=== PATIENT | male | born 1950 | race Two or more races ===

== ENCOUNTER 2021-01-08 18:33 | Inpatient (IN) | payer MEDICAID, OTHER ==
[~2021-01-08] VITALS: Ht 188 cm; Wt 92.5 kg
[2021-01-08 19:31] LABS: Basophils # (auto) 0 10 ^3/uL (0-0.2); Basophils % (auto) 0.1 % (0.0-2.0); Eosinophils # (auto) 0 10 ^3/uL (0-0.8); Hemoglobin 17.4 g/dL (13.5-17.5); Lymphocytes # (auto) 1.1 10 ^3/uL (0.4-5.4); Lymphocytes % (auto) 5.6 % (10.0-50.0); Mean Corpuscular Hemoglobin 28.7 pg (28.0-32.0); Mean Corpuscular Hgb Conc. 29.9 g/dL (32.0-36.0); Mean Corpuscular Volume 96.1 fL (80.0-100.0); Monocytes # (auto) 1.1 10 ^3/uL (0-1.3); Monocytes % (auto) 5.6 % (0.0-12.0); Neutrophils # (auto) 18.1 10 ^3/uL (1.6-8.6); Neutrophils % (auto) 88.7 % (37.0-80.0); Platelet Count (auto) 329 10^3/uL (140-450); Red Blood Cells 6.07 10^6/uL (4.5-5.90); Red Cell Distribution Width 16.5 % (11.8-14.3); White Blood Cell 20.4 10^3/uL (4.4-10.8)
[2021-01-08 19:33] LABS: Hematocrit 58.3 % (41.0-53.0)
[2021-01-08 19:47] LABS: Albumin 3.9 g/dL (3.4-5.0); Anion Gap 25 (5-15); Blood Alcohol < 3.0 mg/dL (0-5); Blood Urea Nitrogen 49 mg/dL (7-18); Calcium 9.7 mg/dL (8.5-10.1); Carbon Dioxide 14 mmol/L (21-32); Chloride 97 mmol/L (98-107); Potassium 4.5 mmol/L (3.5-5.1); Sodium 136 mmol/L (136-145)
[2021-01-08 19:50] LABS: Lactic Acid w/Reflex 7.9 mmol/L (0.4-2.0)
[2021-01-08 19:51] LABS: Alanine Aminotransferase 29 U/L (16-61); Alkaline Phosphatase 153 U/L (45-117); Aspartate Aminotransferase 17 U/L (15-37); BUN/Creatinine Ratio 14.3; Bilirubin, Total 0.5 mg/dL (0.2-1.0); GFR African American 23 mL/min; GFR Non-African American 19 mL/min; Total Protein 8.6 g/dL (6.4-8.2)
[2021-01-08 20:12] LABS: Glucose 1589 mg/dL (74-106)
[2021-01-08] MEDS: SODIUM CHLORIDE 0.9% 1,000 ML IV SCH ×2 (20:30→22:30)
[2021-01-08] MEDS ORDERED: InsuLIN R (HUMAN) 100 UNITS in SODIUM CHL 0.9% 99 ML IV SCH (20:30)
[2021-01-08] MEDS ORDERED: cefTRIAXone 1GM/50ML D5W 50 ML IV ONE (20:30)
[2021-01-08] MEDS ORDERED: DEXTROSE (50%) 50ML SYRG IV PRN (20:30)
[2021-01-08 20:42] LABS: Amphetamine Screen, Urine NEGATIVE (NEGATIVE); Barbiturate Scree,Urine NEGATIVE (NEGATIVE); Benzodiazephine Screen, Urine NEGATIVE (NEGATIVE); Cannabinoid Screen, Urine NEGATIVE (NEGATIVE); Cocaine Screen, Urine NEGATIVE (NEGATIVE); Opiate Scree,Urine NEGATIVE (NEGATIVE); Phencyclidine Screen, Urine NEGATIVE (NEGATIVE)
[2021-01-08 20:56] LABS: Urine Bacteria NONE SEEN /hpf (None Seen); Urine Blood 1+ /uL (Negative); Urine Specific Gravity 1.027 (1.001-1.035); Urine WBC 2 /hpf (0 - 3)
[2021-01-08] MEDS ORDERED: SOD CHL 0.9%/ KCL 20MEQ 1,000 ML IV ONE (21:00)
[2021-01-08] MEDS: ACCU-CHEK COMFORT CURVE STRIP VI SCH ×2 (21:15→22:30)
[2021-01-08 21:55] LABS: Lactic Acid w/Reflex 5.1 mmol/L (0.4-2.0)
[2021-01-08] MEDS ORDERED: SODIUM BICARBONATE 8.4 % INJ 50ML VIAL IV ONE (22:45)
[2021-01-09] MEDS: ACCU-CHEK COMFORT CURVE STRIP VI SCH ×12 (00:34→20:17)
[2021-01-09] MEDS ORDERED: InsuLIN R (HUMAN) 100 UNITS in SODIUM CHL 0.9% 99 ML IV SCH (01:00)
[2021-01-09] MEDS ORDERED: NITROGLYCERIN 0.4 MG SL TAB SL PRN (01:00)
[2021-01-09] MEDS ORDERED: VANCOMYCIN PER PHARMACY 0 MG IV SCH (01:00)
[2021-01-09] MEDS ORDERED: PANTOPRAZOLE 40 MG/10 ML VIAL INJ IV ONE (01:00)
[2021-01-09] MEDS ORDERED: DEXTROSE (50%) 50ML SYRG IV PRN ×2 (01:00→14:45)
[2021-01-09] MEDS ORDERED: ONDANSETRON HCL 4 MG/2 ML VIAL IV PRN (01:00)
[2021-01-09] MEDS ORDERED: MORPHINE SULF INJ 2 MG/ML SYRINGE 1ML IV PRN (01:00)
[2021-01-09] MEDS ORDERED: LORazepam 2MG/ML-1ML VIAL IV ONE (01:00)
[2021-01-09] MEDS ORDERED: INSULIN LANTUS (GLARGINE) 1 /0.01ml (100units/ml) SC ONE ×2 (01:00→12:00)
[2021-01-09] MEDS ORDERED: VANCOMYCIN 1GM/250ML 250 ML IV ONE (01:15)
[2021-01-09] MEDS: SODIUM CHLORIDE 0.9% 1,000 ML IV SCH ×2 (01:25→03:25)
[2021-01-09 02:18] LABS: Albumin 4.1 g/dL (3.4-5.0); Calcium 9.8 mg/dL (8.5-10.1); Potassium 3.8 mmol/L (3.5-5.1)
[2021-01-09 02:21] LABS: Bilirubin, Total 0.4 mg/dL (0.2-1.0); Total Protein 8.8 g/dL (6.4-8.2)
[2021-01-09] MEDS ORDERED: SODIUM CHLORIDE 0.9% 1,000 ML IV SCH ×2 (05:00→07:00)
[2021-01-09 06:00] LABS: BUN/Creatinine Ratio 17.5; Calcium 9.4 mg/dL (8.5-10.1); Potassium 3.5 mmol/L (3.5-5.1)
[2021-01-09] MEDS: PIPERACILLIN-TAZOB 2.25GM 50 ML IV SCH ×3 (06:20→18:15)
[2021-01-09] MEDS: InsuLIN R (HUMAN) 100 UNITS in SODIUM CHL 0.9% 99 ML IV SCH ×3 (09:04→12:12)
[2021-01-09] MEDS: PANTOPRAZOLE 40 MG/10 ML VIAL INJ IV SCH (09:14)
[2021-01-09 10:51] LABS: Basophils # (auto) 0 10 ^3/uL (0-0.2); Basophils % (auto) 0.1 % (0.0-2.0); Eosinophils # (auto) 0 10 ^3/uL (0-0.8); Eosinophils % (auto) 0.1 % (0.0-7.0); Hematocrit 55.2 % (41.0-53.0); Hemoglobin 18.3 g/dL (13.5-17.5); Lymphocytes # (auto) 1.8 10 ^3/uL (0.4-5.4); Lymphocytes % (auto) 7.7 % (10.0-50.0); Mean Corpuscular Hemoglobin 28.3 pg (28.0-32.0); Mean Corpuscular Hgb Conc. 33.2 g/dL (32.0-36.0); Mean Corpuscular Volume 85.2 fL (80.0-100.0); Monocytes # (auto) 1.5 10 ^3/uL (0-1.3); Monocytes % (auto) 6.6 % (0.0-12.0); Neutrophils # (auto) 19.9 10 ^3/uL (1.6-8.6); Neutrophils % (auto) 85.5 % (37.0-80.0); Nucleated Red Blood Cells % 0.3 %; Platelet Count (auto) 299 10^3/uL (140-450); Red Blood Cells 6.49 10^6/uL (4.5-5.90); Red Cell Distribution Width 14.9 % (11.8-14.3); White Blood Cell 23.3 10^3/uL (4.4-10.8)
[2021-01-09 11:01] LABS: Potassium 3.9 mmol/L (3.5-5.1)
[2021-01-09 11:08] LABS: Albumin 3.6 g/dL (3.4-5.0); Bilirubin, Total 0.6 mg/dL (0.2-1.0); Calcium 9.6 mg/dL (8.5-10.1); Total Protein 8.5 g/dL (6.4-8.2)
[2021-01-09 12:10] LABS: INR 1.03 (0.9-1.15); Partial Thromboplastin Time 21.7 sec (23.0-31.2)
[2021-01-09] MEDS: D5W 5% 1,000 ML IV SCH ×2 (12:15→20:22)
[2021-01-09 13:24] LABS: BUN/Creatinine Ratio 22.6; Calcium 9.4 mg/dL (8.5-10.1); Potassium 3.9 mmol/L (3.5-5.1)
[2021-01-09 15:25] LABS: Anion Gap 7 (5-15); Carbon Dioxide 23 mmol/L (21-32); Chloride 132 mmol/L (98-107); Glucose 263 mg/dL (74-106); Potassium 4.4 mmol/L (3.5-5.1)
[2021-01-09 15:26] LABS: BUN/Creatinine Ratio 22.1; Blood Urea Nitrogen 53 mg/dL (7-18); Calcium 9.5 mg/dL (8.5-10.1); GFR African American 35 mL/min; GFR Non-African American 29 mL/min
[2021-01-09 15:30] LABS: Protein, Urine 213.1 mg/dL (0.0-11.9); Urine Amorphous Crystal FEW /hpf (None Seen); Urine Bacteria NONE SEEN /hpf (None Seen); Urine Blood 3+ /uL (Negative); Urine Mucus FEW (None Seen); Urine Specific Gravity 1.031 (1.001-1.035); Urine Sperm PRESENT /hpf (None Seen); Urine WBC 28 /hpf (0 - 3)
[2021-01-09 15:44] LABS: Sodium 162 mmol/L (136-145)
[2021-01-09] MEDS ORDERED: ENOXAPARIN SOD 30 MG/0.3 ML SYRINGE SC ONE (16:00)
[2021-01-09] MEDS ORDERED: LABETALOL HCL 5 MG/ML 4ML SYRINGE IV PRN (16:00)
[2021-01-09] MEDS: InsuLIN REG 1unit/0.01ml Soln (100units/ml) SC SCH ×2 (16:10→20:17)
[2021-01-09] MEDS: LORazepam 2MG/ML-1ML VIAL IV PRN (21:37)
[2021-01-09] MEDS: INSULIN LANTUS (GLARGINE) 1 /0.01ml (100units/ml) SC SCH (22:24)
[2021-01-09] MEDS: LINEZOLID 600MG/300ML 300 ML IV SCH (22:25)
[2021-01-10] MEDS: InsuLIN REG 1unit/0.01ml Soln (100units/ml) SC SCH ×6 (00:43→20:20)
[2021-01-10] MEDS: ACCU-CHEK COMFORT CURVE STRIP VI SCH ×7 (00:44→23:56)
[2021-01-10] MEDS: MORPHINE SULF INJ 2 MG/ML SYRINGE 1ML IV PRN ×3 (01:41→13:20)
[2021-01-10] MEDS: PIPERACILLIN-TAZOB 2.25GM 50 ML IV SCH ×4 (02:07→18:24)
[2021-01-10] MEDS: LORazepam 2MG/ML-1ML VIAL IV PRN ×2 (03:48→12:49)
[2021-01-10] MEDS: D5W 5% 1,000 ML IV SCH ×3 (04:57→20:21)
[2021-01-10 07:13] LABS: White Blood Cell 25.4 10^3/uL (4.4-10.8)
[2021-01-10 07:14] LABS: Hemoglobin 18.2 g/dL (13.5-17.5); Mean Corpuscular Hgb Conc. 32.2 g/dL (32.0-36.0); Mean Corpuscular Volume 86.9 fL (80.0-100.0); Platelet Count (auto) 229 10^3/uL (140-450); Red Cell Distribution Width 15.4 % (11.8-14.3)
[2021-01-10 07:16] LABS: Hematocrit 56.4 % (41.0-53.0)
[2021-01-10 07:17] LABS: Basophils % (manual) 0 (0.0-2.0); Blast Cells 0; Eosinophils % (manual) 0 (0-7); Metamyelocytes % 0; Myelocytes % 0; Promyelocytes % 0; Reactive Lymphocytes 0
[2021-01-10 07:31] LABS: Albumin 3.3 g/dL (3.4-5.0); Calcium 9.7 mg/dL (8.5-10.1)
[2021-01-10 07:35] LABS: BUN/Creatinine Ratio 28.5; Bilirubin, Total 0.8 mg/dL (0.2-1.0)
[2021-01-10 07:40] LABS: Potassium 4.4 mmol/L (3.5-5.1)
[2021-01-10 07:46] LABS: Band Neutrophils % (manual) 2; Lymphocytes % (manual) 15 (10.0-50.0); Monocytes % (manual) 5 (0-12)
[2021-01-10] MEDS ORDERED: INSULIN LANTUS (GLARGINE) 1 /0.01ml (100units/ml) SC SCH (10:00)
[2021-01-10] MEDS: PANTOPRAZOLE 40 MG/10 ML VIAL INJ IV SCH (11:27)
[2021-01-10] MEDS: LINEZOLID 600MG/300ML 300 ML IV SCH ×2 (11:28→21:42)
[2021-01-10] MEDS: INSULIN LANTUS (GLARGINE) 1 /0.01ml (100units/ml) SC SCH ×2 (11:28→21:49)
[2021-01-10] MEDS: ENOXAPARIN SOD 30 MG/0.3 ML SYRINGE SC SCH (11:29)
[2021-01-10 20:42] LABS: Potassium 4.3 mmol/L (3.5-5.1)
[2021-01-10 20:47] LABS: BUN/Creatinine Ratio 27.9; Calcium 9.2 mg/dL (8.5-10.1)
[2021-01-11] MEDS: InsuLIN REG 1unit/0.01ml Soln (100units/ml) SC SCH ×6 (00:06→20:00)
[2021-01-11] MEDS: PIPERACILLIN-TAZOB 2.25GM 50 ML IV SCH ×4 (00:06→20:24)
[2021-01-11] MEDS: HALOPERIDOL LACTATE 5 MG/ML INJ VIAL IM PRN ×3 (01:05→18:34)
[2021-01-11] MEDS: LORazepam 2MG/ML-1ML VIAL IV PRN ×4 (01:41→22:53)
[2021-01-11] MEDS: D5W 5% 1,000 ML IV SCH ×2 (04:00→12:21)
[2021-01-11] MEDS: ACCU-CHEK COMFORT CURVE STRIP VI SCH ×5 (04:25→20:00)
[2021-01-11 07:27] LABS: Basophils # (auto) 0 10 ^3/uL (0-0.2); Basophils % (auto) 0.2 % (0.0-2.0); Eosinophils # (auto) 0.1 10 ^3/uL (0-0.8); Eosinophils % (auto) 0.6 % (0.0-7.0); Hematocrit 48.1 % (41.0-53.0); Hemoglobin 15.7 g/dL (13.5-17.5); Lymphocytes # (auto) 3.2 10 ^3/uL (0.4-5.4); Lymphocytes % (auto) 16.4 % (10.0-50.0); Mean Corpuscular Hemoglobin 28.2 pg (28.0-32.0); Mean Corpuscular Hgb Conc. 32.7 g/dL (32.0-36.0); Mean Corpuscular Volume 86.1 fL (80.0-100.0); Monocytes # (auto) 1.1 10 ^3/uL (0-1.3); Monocytes % (auto) 5.5 % (0.0-12.0); Neutrophils # (auto) 15.2 10 ^3/uL (1.6-8.6); Neutrophils % (auto) 77.3 % (37.0-80.0); Nucleated Red Blood Cells % 0.2 %; Platelet Count (auto) 176 10^3/uL (140-450); Red Blood Cells 5.58 10^6/uL (4.5-5.90); Red Cell Distribution Width 15.2 % (11.8-14.3); White Blood Cell 19.6 10^3/uL (4.4-10.8)
[2021-01-11 07:46] LABS: Calcium 8.8 mg/dL (8.5-10.1); Potassium 3.8 mmol/L (3.5-5.1)
[2021-01-11 07:49] LABS: BUN/Creatinine Ratio 24.3
[2021-01-11] MEDS: PANTOPRAZOLE 40 MG/10 ML VIAL INJ IV SCH (10:28)
[2021-01-11] MEDS: INSULIN LANTUS (GLARGINE) 1 /0.01ml (100units/ml) SC SCH ×2 (10:28→22:00)
[2021-01-11] MEDS: LINEZOLID 600MG/300ML 300 ML IV SCH ×2 (10:28→22:00)
[2021-01-11] MEDS: ENOXAPARIN SOD 30 MG/0.3 ML SYRINGE SC SCH (10:29)
[2021-01-11] MEDS: D5W/SOD CHL 0.45% 1,000 ML IV SCH (12:59)
[2021-01-11 18:57] LABS: Albumin 2.6 g/dL (3.4-5.0); Calcium 8.4 mg/dL (8.5-10.1); Potassium 3.2 mmol/L (3.5-5.1)
[2021-01-11 19:02] LABS: BUN/Creatinine Ratio 24.6; Bilirubin, Total 0.8 mg/dL (0.2-1.0); Total Protein 6.5 g/dL (6.4-8.2)
[2021-01-11 20:48] LABS: Cholesterol 135 mg/dL (< 200); HDL Cholesterol 36 mg/dL (40-59); LDL Cholesterol 88 mg/dL (< 100); Triglycerides 173 mg/dL (< 150)
[2021-01-11] MEDS: ATORVASTATIN 20 MG TAB PO SCH (22:00)
[2021-01-11] MEDS: MORPHINE SULF INJ 2 MG/ML SYRINGE 1ML IV PRN (22:53)
[2021-01-12] MEDS ORDERED: diphenhdrAMINE HCL 50 MG/1 ML VL IV ONE (00:45)
[2021-01-12] MEDS ORDERED: LORazepam 2MG/ML-1ML VIAL IM ONE (00:45)
[2021-01-12] MEDS: D5W/SOD CHL 0.45% 1,000 ML IV SCH ×2 (01:15→15:18)
[2021-01-12] MEDS: PIPERACILLIN-TAZOB 2.25GM 50 ML IV SCH ×2 (02:04→08:42)
[2021-01-12] MEDS: HALOPERIDOL LACTATE 5 MG/ML INJ VIAL IM PRN ×2 (02:05→20:49)
[2021-01-12] MEDS: ACCU-CHEK COMFORT CURVE STRIP VI SCH ×6 (04:00→20:00)
[2021-01-12] MEDS: InsuLIN REG 1unit/0.01ml Soln (100units/ml) SC SCH ×6 (04:00→20:00)
[2021-01-12] MEDS: LORazepam 2MG/ML-1ML VIAL IV PRN (06:24)
[2021-01-12 07:59] LABS: Basophils # (auto) 0 10 ^3/uL (0-0.2); Basophils % (auto) 0.2 % (0.0-2.0); Eosinophils # (auto) 0.1 10 ^3/uL (0-0.8); Eosinophils % (auto) 0.5 % (0.0-7.0); Hematocrit 44.7 % (41.0-53.0); Lymphocytes # (auto) 2.2 10 ^3/uL (0.4-5.4); Lymphocytes % (auto) 14.9 % (10.0-50.0); Mean Corpuscular Hemoglobin 28.4 pg (28.0-32.0); Mean Corpuscular Hgb Conc. 33.5 g/dL (32.0-36.0); Mean Corpuscular Volume 84.9 fL (80.0-100.0); Monocytes # (auto) 0.8 10 ^3/uL (0-1.3); Monocytes % (auto) 5.6 % (0.0-12.0); Neutrophils # (auto) 11.4 10 ^3/uL (1.6-8.6); Neutrophils % (auto) 78.8 % (37.0-80.0); Nucleated Red Blood Cells % 0.1 %; Platelet Count (auto) 154 10^3/uL (140-450); Red Blood Cells 5.26 10^6/uL (4.5-5.90); White Blood Cell 14.5 10^3/uL (4.4-10.8)
[2021-01-12 08:19] LABS: Calcium 8.6 mg/dL (8.5-10.1); Potassium 3.7 mmol/L (3.5-5.1)
[2021-01-12 08:41] LABS: BUN/Creatinine Ratio 24.5
[2021-01-12] MEDS: PANTOPRAZOLE 40 MG/10 ML VIAL INJ IV SCH (10:31)
[2021-01-12] MEDS: LINEZOLID 600MG/300ML 300 ML IV SCH ×2 (10:31→22:00)
[2021-01-12] MEDS: ENOXAPARIN SOD 30 MG/0.3 ML SYRINGE SC SCH (10:31)
[2021-01-12] MEDS: ASPirin 81 mg TAB PO SCH (10:31)
[2021-01-12] MEDS: INSULIN LANTUS (GLARGINE) 1 /0.01ml (100units/ml) SC SCH ×2 (10:45→22:00)
[2021-01-12] MEDS: PIPERACILLIN-TAZOB 3.375GM 100 ML IV SCH ×2 (15:18→20:00)
[2021-01-12] MEDS: ATORVASTATIN 20 MG TAB PO SCH (22:00)
[2021-01-13] MEDS: PIPERACILLIN-TAZOB 3.375GM 100 ML IV SCH ×4 (01:27→21:40)
[2021-01-13] MEDS: D5W/SOD CHL 0.45% 1,000 ML IV SCH ×3 (02:15→15:15)
[2021-01-13] MEDS: InsuLIN REG 1unit/0.01ml Soln (100units/ml) SC SCH ×5 (04:00→17:26)
[2021-01-13] MEDS: ACCU-CHEK COMFORT CURVE STRIP VI SCH ×5 (04:00→17:26)
[2021-01-13] MEDS: HALOPERIDOL LACTATE 5 MG/ML INJ VIAL IM PRN (06:28)
[2021-01-13 07:44] LABS: Basophils # (auto) 0.1 10 ^3/uL (0-0.2); Basophils % (auto) 0.6 % (0.0-2.0); Eosinophils # (auto) 0.3 10 ^3/uL (0-0.8); Eosinophils % (auto) 2.1 % (0.0-7.0); Hematocrit 40.9 % (41.0-53.0); Hemoglobin 13.5 g/dL (13.5-17.5); Lymphocytes # (auto) 2.1 10 ^3/uL (0.4-5.4); Lymphocytes % (auto) 15.2 % (10.0-50.0); Mean Corpuscular Hemoglobin 27.9 pg (28.0-32.0); Mean Corpuscular Volume 84.6 fL (80.0-100.0); Monocytes # (auto) 0.9 10 ^3/uL (0-1.3); Monocytes % (auto) 6.8 % (0.0-12.0); Neutrophils # (auto) 10.5 10 ^3/uL (1.6-8.6); Neutrophils % (auto) 75.3 % (37.0-80.0); Nucleated Red Blood Cells % 0.1 %; Platelet Count (auto) 122 10^3/uL (140-450); Red Blood Cells 4.84 10^6/uL (4.5-5.90); Red Cell Distribution Width 14.7 % (11.8-14.3); White Blood Cell 13.9 10^3/uL (4.4-10.8)
[2021-01-13 07:55] LABS: Anion Gap 7 (5-15); Calcium 8.4 mg/dL (8.5-10.1); Carbon Dioxide 22 mmol/L (21-32); Chloride 123 mmol/L (98-107); Sodium 152 mmol/L (136-145)
[2021-01-13 07:57] LABS: GFR African American 62 mL/min; GFR Non-African American 51 mL/min
[2021-01-13 08:11] LABS: Blood Urea Nitrogen 29 mg/dL (7-18); Glucose 159 mg/dL (74-106)
[2021-01-13] MEDS: LINEZOLID 600MG/300ML 300 ML IV SCH ×2 (10:00→23:01)
[2021-01-13] MEDS: INSULIN LANTUS (GLARGINE) 1 /0.01ml (100units/ml) SC SCH ×2 (10:24→23:07)
[2021-01-13] MEDS: PANTOPRAZOLE 40 MG/10 ML VIAL INJ IV SCH (10:37)
[2021-01-13] MEDS: ASPirin 81 mg TAB PO SCH (10:38)
[2021-01-13] MEDS: ENOXAPARIN SOD 30 MG/0.3 ML SYRINGE SC SCH (10:38)
[2021-01-13] MEDS ORDERED: LORazepam 2MG/ML-1ML VIAL IV ONE (12:00)
[2021-01-13] MEDS ORDERED: DEXTROSE (50%) 50ML SYRG IV PRN (15:15)
[2021-01-13 16:56] VITALS: BP 116/71
[2021-01-13 22:00] VITALS: BP 121/81
[2021-01-13] MEDS: ATORVASTATIN 20 MG TAB PO SCH (23:01)
[2021-01-14] MEDS: InsuLIN REG 1unit/0.01ml Soln (100units/ml) SC SCH ×5 (00:47→22:36)
[2021-01-14] MEDS: PIPERACILLIN-TAZOB 3.375GM 100 ML IV SCH ×2 (03:05→09:05)
[2021-01-14] MEDS: LORazepam 2MG/ML-1ML VIAL IV PRN (03:54)
[2021-01-14 04:06] VITALS: BP 122/72
[2021-01-14 05:29] LABS: Basophils # (auto) 0 10 ^3/uL (0-0.2); Basophils % (auto) 0.2 % (0.0-2.0); Eosinophils # (auto) 0.3 10 ^3/uL (0-0.8); Eosinophils % (auto) 3.1 % (0.0-7.0); Hematocrit 35.5 % (41.0-53.0); Hemoglobin 12.1 g/dL (13.5-17.5); Lymphocytes # (auto) 1.6 10 ^3/uL (0.4-5.4); Lymphocytes % (auto) 16.9 % (10.0-50.0); Mean Corpuscular Volume 85.3 fL (80.0-100.0); Monocytes # (auto) 0.8 10 ^3/uL (0-1.3); Monocytes % (auto) 8.7 % (0.0-12.0); Neutrophils # (auto) 6.8 10 ^3/uL (1.6-8.6); Neutrophils % (auto) 71.1 % (37.0-80.0); Platelet Count (auto) 127 10^3/uL (140-450); Red Blood Cells 4.16 10^6/uL (4.5-5.90); Red Cell Distribution Width 14.8 % (11.8-14.3); White Blood Cell 9.6 10^3/uL (4.4-10.8)
[2021-01-14 05:44] LABS: Potassium 3.3 mmol/L (3.5-5.1)
[2021-01-14] MEDS: ACCU-CHEK COMFORT CURVE STRIP VI SCH ×5 (06:25→22:56)
[2021-01-14] MEDS: D5W/SOD CHL 0.45% 1,000 ML IV SCH (07:55)
[2021-01-14 08:00] VITALS: BP 126/84
[2021-01-14] MEDS: INSULIN LANTUS (GLARGINE) 1 /0.01ml (100units/ml) SC SCH ×2 (10:00→22:25)
[2021-01-14] MEDS ORDERED: POTASSIUM CHL 20 Meq TABLET PO ONE (10:45)
[2021-01-14] MEDS: PANTOPRAZOLE 40 MG/10 ML VIAL INJ IV SCH (11:19)
[2021-01-14] MEDS: ASPirin 81 mg TAB PO SCH (11:19)
[2021-01-14] MEDS: D5W 5% 1,000 ML IV SCH ×2 (11:27→22:21)
[2021-01-14] MEDS: LINEZOLID 600MG/300ML 300 ML IV SCH (13:08)
[2021-01-14 16:11] VITALS: BP 123/82
[2021-01-14 20:09] LABS: Urine Bacteria FEW /hpf (None Seen); Urine Blood 3+ /uL (Negative); Urine Budding Yeast MODERATE /hpf (None Seen); Urine Mucus FEW (None Seen); Urine Specific Gravity 1.021 (1.001-1.035); Urine WBC 37 /hpf (0 - 3)
[2021-01-14 21:38] VITALS: BP 111/66
[2021-01-14] MEDS: ATORVASTATIN 20 MG TAB PO SCH (22:21)
[2021-01-15 05:09] VITALS: BP 109/71
[2021-01-15 05:37] LABS: Basophils # (auto) 0 10 ^3/uL (0-0.2); Basophils % (auto) 0.1 % (0.0-2.0); Eosinophils # (auto) 0.4 10 ^3/uL (0-0.8); Eosinophils % (auto) 4.2 % (0.0-7.0); Hematocrit 34.7 % (41.0-53.0); Hemoglobin 11.8 g/dL (13.5-17.5); Lymphocytes # (auto) 1.7 10 ^3/uL (0.4-5.4); Lymphocytes % (auto) 19.5 % (10.0-50.0); Mean Corpuscular Hemoglobin 28.9 pg (28.0-32.0); Mean Corpuscular Volume 84.8 fL (80.0-100.0); Monocytes % (auto) 11.5 % (0.0-12.0); Neutrophils # (auto) 5.8 10 ^3/uL (1.6-8.6); Neutrophils % (auto) 64.7 % (37.0-80.0); Platelet Count (auto) 154 10^3/uL (140-450); Red Blood Cells 4.09 10^6/uL (4.5-5.90); White Blood Cell 8.9 10^3/uL (4.4-10.8)
[2021-01-15 05:56] LABS: Calcium 7.8 mg/dL (8.5-10.1); Potassium 3.3 mmol/L (3.5-5.1)
[2021-01-15] MEDS: ACCU-CHEK COMFORT CURVE STRIP VI SCH ×3 (06:04→18:00)
[2021-01-15] MEDS: InsuLIN REG 1unit/0.01ml Soln (100units/ml) SC SCH ×3 (06:06→18:00)
[2021-01-15 08:00] VITALS: BP 125/68
[2021-01-15 08:41] VITALS: BP 125/68
[2021-01-15] MEDS: INSULIN LANTUS (GLARGINE) 1 /0.01ml (100units/ml) SC SCH ×2 (10:00→22:10)
[2021-01-15] MEDS ORDERED: POTASSIUM EFFERVESENT TAB 25 MEQ PO ONE (10:30)
[2021-01-15] MEDS: PANTOPRAZOLE 40 MG/10 ML VIAL INJ IV SCH (11:24)
[2021-01-15] MEDS: ASPirin 81 mg TAB PO SCH (11:24)
[2021-01-15] MEDS: ENOXAPARIN SOD 40 MG/0.4 ML SYRINGE SC SCH (11:25)
[2021-01-15 13:00] VITALS: BP 138/82
[2021-01-15] MEDS ORDERED: metFORMIN HYDROCHLORIDE 500 MG TAB PO ONE (13:45)
[2021-01-15 16:32] VITALS: BP 116/71
[2021-01-15] MEDS: metFORMIN HYDROCHLORIDE 500 MG TAB PO SCH (18:51)
[2021-01-15] MEDS: ATORVASTATIN 20 MG TAB PO SCH (21:50)
[2021-01-15 22:00] VITALS: BP 106/63
[2021-01-16] MEDS: ACCU-CHEK COMFORT CURVE STRIP VI SCH ×3 (00:24→12:00)
[2021-01-16] MEDS: InsuLIN REG 1unit/0.01ml Soln (100units/ml) SC SCH ×3 (00:37→12:00)
[2021-01-16 05:00] VITALS: BP 145/84
[2021-01-16 06:39] LABS: Basophils # (auto) 0 10 ^3/uL (0-0.2); Basophils % (auto) 0.4 % (0.0-2.0); Eosinophils # (auto) 0.3 10 ^3/uL (0-0.8); Eosinophils % (auto) 4.1 % (0.0-7.0); Lymphocytes # (auto) 1.8 10 ^3/uL (0.4-5.4); Lymphocytes % (auto) 23.1 % (10.0-50.0); Mean Corpuscular Hemoglobin 28.7 pg (28.0-32.0); Mean Corpuscular Hgb Conc. 34.4 g/dL (32.0-36.0); Mean Corpuscular Volume 83.4 fL (80.0-100.0); Monocytes % (auto) 13.4 % (0.0-12.0); Neutrophils # (auto) 4.5 10 ^3/uL (1.6-8.6); Nucleated Red Blood Cells % 0.1 %; Platelet Count (auto) 163 10^3/uL (140-450); Red Blood Cells 3.84 10^6/uL (4.5-5.90); Red Cell Distribution Width 14.2 % (11.8-14.3); White Blood Cell 7.6 10^3/uL (4.4-10.8)
[2021-01-16 07:08] LABS: BUN/Creatinine Ratio 14.7; Calcium 7.8 mg/dL (8.5-10.1); Potassium 3.2 mmol/L (3.5-5.1)
[2021-01-16 09:04] VITALS: BP 131/81
[2021-01-16] MEDS: PANTOPRAZOLE 40 MG/10 ML VIAL INJ IV SCH (09:09)
[2021-01-16] MEDS: metFORMIN HYDROCHLORIDE 500 MG TAB PO SCH (09:09)
[2021-01-16] MEDS: ENOXAPARIN SOD 40 MG/0.4 ML SYRINGE SC SCH (09:10)
[2021-01-16] MEDS: ASPirin 81 mg TAB PO SCH (09:10)
[2021-01-16] MEDS: INSULIN LANTUS (GLARGINE) 1 /0.01ml (100units/ml) SC SCH (09:28)
[2021-01-16] MEDS ORDERED: FLUCONAZOLE 200MG/100ML 100 ML IV SCH (10:00)
== END 2021-01-16 14:30 | disposition home or self-care (01) | DRG 420 ==
LOC: ER 18:33 → EDSEX 18:33 → EDBD 18:33 → TELE 18:34 → TELE-CENTR 01-13 14:26 → CENTRAL 01-15 11:08
PROVIDERS: ADMIT Nurse Practitioner; ATTEND Internal Medicine
PROC: 05HF33Z Insertion of Infusion Device into Left Cephalic Vein, Percutaneous Approach (ICD-10-PCS; principal; 2021-01-10)
PROC: B54NZZA Ultrasonography of Left Upper Extremity Veins, Guidance (ICD-10-PCS; 2021-01-10)
PROC: 05H933Z Insertion of Infusion Device into Right Brachial Vein, Percutaneous Approach (ICD-10-PCS; 2021-01-13)
PROC: B54MZZA Ultrasonography of Right Upper Extremity Veins, Guidance (ICD-10-PCS; 2021-01-13)
DX: E11.10 Type 2 diabetes mellitus with ketoacidosis without coma (principal); N17.0 Acute kidney failure with tubular necrosis; R65.11 Systemic inflammatory response syndrome (SIRS) of non-infectious origin with acute organ dysfunction; G93.41 Metabolic encephalopathy; E87.0 Hyperosmolality and hypernatremia; M62.82 Rhabdomyolysis; E83.39 Other disorders of phosphorus metabolism; Z20.822 Contact with and (suspected) exposure to COVID-19; N39.0 Urinary tract infection, site not specified; E86.0 Dehydration; E11.51 Type 2 diabetes mellitus with diabetic peripheral angiopathy without gangrene; E11.22 Type 2 diabetes mellitus with diabetic chronic kidney disease; N18.2 Chronic kidney disease, stage 2 (mild); I12.9 Hypertensive chronic kidney disease with stage 1 through stage 4 chronic kidney disease, or unspecified chronic kidney disease; N28.89 Other specified disorders of kidney and ureter; Z79.899 Other long term (current) drug therapy; Z79.82 Long term (current) use of aspirin; Z82.49 Family history of ischemic heart disease and other diseases of the circulatory system
CPT/HCPCS: 36415; 36600; 70450; 70551; 71045; 76775; 80048; 80053; 80061; 80307; 80320; 81001; 82010; 82140; 82306; 82550; 82570; 82805; 82962; 83036; 83605; 83930; 84100; 84156; 84300; 84443; 84484; 85007; 85025; 85027; 85379; 85610; 85730; 87040; 87086; 87088; 87426; 92610; 93005; 93306; 93886; 96365; 96367; 96372; 96375; 97110; 97116; 97163; 97530; 99291; A4565; C9113; G0378; J0696; J1815; J2405; J2543

== ENCOUNTER 2021-03-20 18:23 | Emergency (ER) | payer MEDICAID ==
[~2021-03-20] VITALS: Ht 188 cm; Wt 95.3 kg
[2021-03-20 22:17] VITALS: BP 134/77
== END 2021-03-20 22:23 | disposition home or self-care (01) ==
LOC: ER 18:23
DX: S33.5XXA Sprain of ligaments of lumbar spine, initial encounter (principal); R51.9 Headache, unspecified; M79.18 Myalgia, other site; E11.9 Type 2 diabetes mellitus without complications; I10 Essential (primary) hypertension; W01.0XXA Fall on same level from slipping, tripping and stumbling without subsequent striking against object, initial encounter; Y93.89 Activity, other specified; Y92.89 Other specified places as the place of occurrence of the external cause; Y99.8 Other external cause status
CPT/HCPCS: 70450; 72080; 72125; 72128; 72131; 93005

== ENCOUNTER 2021-12-13 17:37 | Emergency (ER) | payer MEDICARE, MEDICAID ==
[~2021-12-13] VITALS: Ht 188 cm; Wt 84.4 kg
[2021-12-13 18:53] LABS: Basophils # (auto) 0 10 ^3/uL (0-0.2); Basophils % (auto) 0.5 % (0.0-2.0); Eosinophils # (auto) 0.2 10 ^3/uL (0-0.8); Eosinophils % (auto) 1.9 % (0.0-7.0); Hematocrit 40.5 % (41.0-53.0); Hemoglobin 13.6 g/dL (13.5-17.5); Lymphocytes # (auto) 1.9 10 ^3/uL (0.4-5.4); Lymphocytes % (auto) 19.6 % (10.0-50.0); Mean Corpuscular Hemoglobin 27.6 pg (28.0-32.0); Mean Corpuscular Hgb Conc. 33.6 g/dL (32.0-36.0); Mean Corpuscular Volume 82.1 fL (80.0-100.0); Monocytes # (auto) 0.8 10 ^3/uL (0-1.3); Monocytes % (auto) 7.9 % (0.0-12.0); Neutrophils # (auto) 6.8 10 ^3/uL (1.6-8.6); Neutrophils % (auto) 70.1 % (37.0-80.0); Nucleated Red Blood Cells % 0.1 %; Red Blood Cells 4.94 10^6/uL (4.5-5.90); Red Cell Distribution Width 15.6 % (11.8-14.3); White Blood Cell 9.7 10^3/uL (4.4-10.8)
[2021-12-13 19:01] LABS: Albumin 3.3 g/dL (3.4-5.0); Calcium 8.9 mg/dL (8.5-10.1); Potassium 4.6 mmol/L (3.5-5.1)
[2021-12-13 19:04] LABS: BUN/Creatinine Ratio 20.4; Bilirubin, Total 0.3 mg/dL (0.2-1.0); Total Protein 7.9 g/dL (6.4-8.2)
[2021-12-13] MEDS ORDERED: INSU-567 XX (19:51)
[2021-12-13] MEDS ORDERED: INS7030I SC (19:51)
[2021-12-13 20:30] VITALS: BP 145/64
== END 2021-12-13 20:31 | disposition home or self-care (01) ==
LOC: ER 17:38
DX: E11.65 Type 2 diabetes mellitus with hyperglycemia (principal); I10 Essential (primary) hypertension
CPT/HCPCS: 36415; 80053; 85025

== ENCOUNTER 2022-02-02 21:50 | Emergency (ER) | payer OTHER, MEDICAID ==
[~2022-02-02] VITALS: Ht 188 cm; Wt 81.6 kg
[~2022-02-02 21:50] MED LIST: INS7030I SC; INSU-567 XX
[2022-02-02 21:55] VITALS: BP 108/71
== END 2022-02-02 23:18 | disposition home or self-care (01) ==
LOC: ER 21:52
DX: E11.9 Type 2 diabetes mellitus without complications (principal); I10 Essential (primary) hypertension; Z76.0 Encounter for issue of repeat prescription
CPT/HCPCS: 82962

== ENCOUNTER 2022-02-14 12:09 | Emergency (ER) | payer OTHER, MEDICAID ==
[~2022-02-14] VITALS: Ht 175.3 cm; Wt 95.3 kg
[2022-02-14 13:32] LABS: Basophils # (auto) 0 10 ^3/uL (0-0.2); Eosinophils # (auto) 0.2 10 ^3/uL (0-0.8)
[2022-02-14 13:34] LABS: Basophils % (auto) 0.3 % (0.0-2.0); Eosinophils % (auto) 1.3 % (0.0-7.0); Hematocrit 28.4 % (41.0-53.0); Hemoglobin 9.3 g/dL (13.5-17.5); Lymphocytes # (auto) 1.5 10 ^3/uL (0.4-5.4); Mean Corpuscular Hemoglobin 26.2 pg (28.0-32.0); Mean Corpuscular Hgb Conc. 32.7 g/dL (32.0-36.0); Mean Corpuscular Volume 79.9 fL (80.0-100.0); Monocytes # (auto) 1.3 10 ^3/uL (0-1.3); Monocytes % (auto) 8.6 % (0.0-12.0); Neutrophils # (auto) 11.8 10 ^3/uL (1.6-8.6); Neutrophils % (auto) 79.8 % (37.0-80.0); Nucleated Red Blood Cells % 0.1 %; Red Blood Cells 3.55 10^6/uL (4.5-5.90); White Blood Cell 14.8 10^3/uL (4.4-10.8)
[2022-02-14] MEDS ORDERED: SODIUM CHLORIDE 0.9% 2,000 ML IV ONE (13:45)
[2022-02-14 13:52] LABS: INR 1.13 (0.9-1.15)
[2022-02-14 13:56] LABS: Lipase 101 U/L (73-393)
[2022-02-14 13:58] VITALS: BP 111/68
[2022-02-14 14:02] LABS: Creatine Kinase IFCC 74 U/L (39-308)
[2022-02-14 14:19] LABS: Albumin 2.3 g/dL (3.4-5.0); Calcium 8.4 mg/dL (8.5-10.1); Magnesium 2.4 mg/dL (1.6-2.6); Potassium 4.2 mmol/L (3.5-5.1)
[2022-02-14 14:22] LABS: BUN/Creatinine Ratio 23.4; Bilirubin, Total 0.3 mg/dL (0.2-1.0); Total Protein 6.9 g/dL (6.4-8.2)
[2022-02-14 14:23] LABS: Urine Bacteria NONE SEEN /hpf (None Seen); Urine Blood Negative /uL (Negative); Urine Hyaline Cast FEW /lpf (0 - 2); Urine Mucus FEW (None Seen); Urine Specific Gravity 1.028 (1.001-1.035); Urine Sperm PRESENT /hpf (None Seen); Urine WBC 3 /hpf (0 - 3)
[2022-02-14] MEDS ORDERED: INSU-567 XX (15:47)
[2022-02-14] MEDS ORDERED: INSULIN 70/30 1unit/0.01ml Susp (100units/ml) SC ONE (16:00)
== END 2022-02-14 16:00 | disposition left against medical advice (07) ==
LOC: ER 12:09
DX: E11.65 Type 2 diabetes mellitus with hyperglycemia (principal); I10 Essential (primary) hypertension; Z20.822 Contact with and (suspected) exposure to COVID-19; Z53.29 Procedure and treatment not carried out because of patient's decision for other reasons; Z76.0 Encounter for issue of repeat prescription
CPT/HCPCS: 36415; 36600; 71045; 80053; 81001; 82010; 82550; 82805; 83690; 83735; 83880; 84484; 85025; 85610; 85730; 87426; 93005; 96360; 99285; J7030

== ENCOUNTER 2022-02-16 20:00 | Emergency (ER) | payer OTHER, MEDICAID ==
[~2022-02-16] VITALS: Ht 188 cm; Wt 81.6 kg
[2022-02-16 20:03] VITALS: BP 131/64
== END 2022-02-16 20:50 | disposition left against medical advice (07) ==
LOC: ER 20:02
DX: Z76.0 Encounter for issue of repeat prescription (principal); Z53.21 Procedure and treatment not carried out due to patient leaving prior to being seen by health care provider

== ENCOUNTER 2022-02-26 07:16 | Inpatient (IN) | payer OTHER, MEDICAID ==
[~2022-02-26] VITALS: Ht 188 cm; Wt 80.2 kg
[2022-02-26] MEDS ORDERED: LACTATED RINGER'S 1,000 ML IV ONE (07:45)
[2022-02-26 07:58] LABS: Eosinophils # (auto) 0 10 ^3/uL (0-0.8)
[2022-02-26 08:00] LABS: Basophils # (auto) 0 10 ^3/uL (0-0.2); Basophils % (auto) 0.1 % (0.0-2.0); Eosinophils % (auto) 0.1 % (0.0-7.0); Hematocrit 35.8 % (41.0-53.0); Hemoglobin 11.5 g/dL (13.5-17.5); Lymphocytes % (auto) 4.5 % (10.0-50.0); Mean Corpuscular Hemoglobin 25.7 pg (28.0-32.0); Mean Corpuscular Hgb Conc. 32.2 g/dL (32.0-36.0); Mean Corpuscular Volume 79.7 fL (80.0-100.0); Monocytes # (auto) 1.8 10 ^3/uL (0-1.3); Monocytes % (auto) 8.3 % (0.0-12.0); Red Cell Distribution Width 15.7 % (11.8-14.3); White Blood Cell 21.9 10^3/uL (4.4-10.8)
[2022-02-26 08:13] LABS: Albumin 2.2 g/dL (3.4-5.0); Calcium 8.8 mg/dL (8.5-10.1); Potassium 3.3 mmol/L (3.5-5.1)
[2022-02-26 08:16] LABS: BUN/Creatinine Ratio 17.9
[2022-02-26 08:19] LABS: Bilirubin, Total 0.5 mg/dL (0.2-1.0); Total Protein 6.6 g/dL (6.4-8.2)
[2022-02-26] MEDS ORDERED: POTASSIUM EFFERVESENT TAB 25 MEQ PO ONE (08:30)
[2022-02-26] MEDS ORDERED: INSULIN 70/30 1unit/0.01ml Susp (100units/ml) SC ONE (08:45)
[2022-02-26] MEDS ORDERED: IOHEXOL 300 MG/ML 100ML BOTTLE IJ ONE (12:44)
[2022-02-26] MEDS ORDERED: OMNIPAQUE ORAL SOLN 500ml 12mg/ml PO ONE (12:44)
[2022-02-26] MEDS ORDERED: SODIUM CHLORIDE 0.9% 1,000 ML IV ONE (14:30)
[2022-02-26] MEDS: SODIUM CHLORIDE 0.9% 1,000 ML IV SCH ×3 (14:30→20:30)
[2022-02-26] MEDS ORDERED: DEXTROSE (50%) 50ML SYRG IV PRN (14:30)
[2022-02-26] MEDS: MORPHINE SULFATE INJECTION 2 MG/ML SYRG IV PRN ×2 (14:43→22:06)
[2022-02-26] MEDS ORDERED: GOLYTELY 4L KIT PO ONE ×2 (15:00→15:15)
[2022-02-26] MEDS: ACCU-CHEK COMFORT CURVE STRIP VI SCH ×5 (15:00→23:00)
[2022-02-26 15:22] LABS: Magnesium 1.9 mg/dL (1.6-2.6); Phosphorus 2.5 mg/dL (2.5-4.90)
[2022-02-26 16:16] LABS: INR 1.11 (0.9-1.15)
[2022-02-26] MEDS ORDERED: MAGNESIUM SULFATE 1GM/100ML 200 ML IV ONE (18:15)
[2022-02-26] MEDS ORDERED: POTASSIUM CHL 20MEQ/100ML 200 ML IV PRN (18:15)
[2022-02-26] MEDS ORDERED: INSULIN LANTUS (GLARGINE) 1 /0.01ml (100units/ml) SC ONE (18:15)
[2022-02-26] MEDS ORDERED: InsuLIN R (HUMAN) 100 UNITS in SODIUM CHL 0.9% 99 ML IV SCH (18:15)
[2022-02-26] MEDS ORDERED: SODIUM CHLORIDE 0.9% 1,000 ML IV SCH (18:30)
[2022-02-26] MEDS: CEFTRIAXONE SODIUM 2 GM in D5W 5% 50 ML IV SCH (18:37)
[2022-02-26 19:15] LABS: BUN/Creatinine Ratio 16.2; Calcium 7.8 mg/dL (8.5-10.1)
[2022-02-26 19:17] LABS: Potassium 3.8 mmol/L (3.5-5.1)
[2022-02-26 19:24] LABS: Urine Bacteria NONE SEEN /hpf (None Seen); Urine Blood Negative /uL (Negative); Urine Mucus FEW (None Seen); Urine WBC 1 /hpf (0 - 3)
[2022-02-26 19:31] LABS: Magnesium 1.4 mg/dL (1.6-2.6); Phosphorus 1.4 mg/dL (2.5-4.90)
[2022-02-26] MEDS: metroNIDAZOLE 500MG/100ML 100 ML IV SCH (22:30)
[2022-02-27] VITALS (16 sets, daily range): BP systolic 117–146; BP diastolic 57–87
[2022-02-27] MEDS: SODIUM CHLORIDE 0.9% 1,000 ML IV SCH ×4 (00:15→09:24)
[2022-02-27] MEDS: ACCU-CHEK COMFORT CURVE STRIP VI SCH ×10 (00:45→21:24)
[2022-02-27 03:00] LABS: BUN/Creatinine Ratio 20.5; Calcium 8.1 mg/dL (8.5-10.1)
[2022-02-27] MEDS: MORPHINE SULFATE INJECTION 2 MG/ML SYRG IV PRN ×2 (03:49→08:13)
[2022-02-27] MEDS: metroNIDAZOLE 500MG/100ML 100 ML IV SCH ×2 (05:28→21:22)
[2022-02-27] MEDS ORDERED: POTASSIUM CHL 20MEQ/100ML 100 ML IV ONE (06:45)
[2022-02-27 06:48] LABS: Basophils # (auto) 0 10 ^3/uL (0-0.2); Eosinophils # (auto) 0 10 ^3/uL (0-0.8); Hemoglobin 10.4 g/dL (13.5-17.5); Lymphocytes # (auto) 1.1 10 ^3/uL (0.4-5.4); Monocytes # (auto) 1.9 10 ^3/uL (0-1.3)
[2022-02-27 06:50] LABS: Basophils % (auto) 0.2 % (0.0-2.0); Hematocrit 31.6 % (41.0-53.0); Lymphocytes % (auto) 5.6 % (10.0-50.0); Mean Corpuscular Hemoglobin 25.9 pg (28.0-32.0); Mean Corpuscular Hgb Conc. 32.9 g/dL (32.0-36.0); Mean Corpuscular Volume 78.6 fL (80.0-100.0); Monocytes % (auto) 9.5 % (0.0-12.0); Neutrophils # (auto) 17.1 10 ^3/uL (1.6-8.6); Neutrophils % (auto) 84.7 % (37.0-80.0); Red Blood Cells 4.01 10^6/uL (4.5-5.90); Red Cell Distribution Width 15.8 % (11.8-14.3); White Blood Cell 20.2 10^3/uL (4.4-10.8)
[2022-02-27] MEDS ORDERED: INSULIN LANTUS (GLARGINE) 1 /0.01ml (100units/ml) SC SCH (07:00)
[2022-02-27] MEDS ORDERED: InsuLIN REG 1unit/0.01ml Soln (100units/ml) SC SCH (07:00)
[2022-02-27 07:05] LABS: Albumin 1.7 g/dL (3.4-5.0); Calcium 7.8 mg/dL (8.5-10.1)
[2022-02-27 07:08] LABS: Bilirubin, Total 0.3 mg/dL (0.2-1.0); Total Protein 5.5 g/dL (6.4-8.2)
[2022-02-27 07:34] LABS: Potassium 2.9 mmol/L (3.5-5.1)
[2022-02-27] MEDS: INSULIN LANTUS (GLARGINE) 1 /0.01ml (100units/ml) SC SCH (09:10)
[2022-02-27] MEDS: CEFTRIAXONE SODIUM 2 GM in D5W 5% 50 ML IV SCH (09:24)
[2022-02-27] MEDS ORDERED: diphenhdrAMINE HCL 50 MG/1 ML VL ONE (09:28)
[2022-02-27] MEDS: fentaNYL CITRATE 100 MCG/2 ML VL ONE ×2 (10:50→10:53)
[2022-02-27] MEDS: MIDAZOLAM HCL 5 MG/ML-1ML VIAL ONE ×2 (10:50→10:53)
[2022-02-27] MEDS ORDERED: POTASSIUM PHOSPHATE 26.4 MEQ in SODIUM CHL 0.9% 100 ML IV ONE (14:15)
[2022-02-27 14:47] LABS: BUN/Creatinine Ratio 18.8
[2022-02-27] MEDS: MAGNESIUM SULFATE 1GM/100ML 100 ML IV SCH ×2 (15:33→16:47)
[2022-02-27] MEDS: POTASSIUM CHL 20MEQ/100ML 100 ML IV SCH ×2 (15:34→18:22)
[2022-02-27] MEDS: InsuLIN REG 1unit/0.01ml Soln (100units/ml) SC SCH ×2 (17:19→21:24)
[2022-02-27] MEDS: PIPERACILLIN-TAZOB 3.375GM 100 ML IV SCH (18:22)
[2022-02-27] MEDS: FLORASTOR (S. BOULARDII) 250 MG CAP PO SCH (21:22)
[2022-02-28] MEDS: PIPERACILLIN-TAZOB 3.375GM 100 ML IV SCH ×5 (00:40→23:38)
[2022-02-28 04:27] VITALS: BP 135/58
[2022-02-28] MEDS: metroNIDAZOLE 500MG/100ML 100 ML IV SCH ×3 (05:42→21:55)
[2022-02-28] MEDS: InsuLIN REG 1unit/0.01ml Soln (100units/ml) SC SCH ×4 (06:27→22:25)
[2022-02-28] MEDS: ACCU-CHEK COMFORT CURVE STRIP VI SCH ×4 (06:28→21:56)
[2022-02-28 06:29] LABS: Basophils # (auto) 0 10 ^3/uL (0-0.2); Basophils % (auto) 0.1 % (0.0-2.0); Eosinophils # (auto) 0 10 ^3/uL (0-0.8); Lymphocytes % (auto) 8.9 % (10.0-50.0); Monocytes # (auto) 1.3 10 ^3/uL (0-1.3)
[2022-02-28 06:35] LABS: Eosinophils % (auto) 0.3 % (0.0-7.0); Lymphocytes # (auto) 1.3 10 ^3/uL (0.4-5.4); Mean Corpuscular Hemoglobin 25.6 pg (28.0-32.0); Mean Corpuscular Hgb Conc. 32.3 g/dL (32.0-36.0); Mean Corpuscular Volume 79.3 fL (80.0-100.0); Neutrophils # (auto) 11.8 10 ^3/uL (1.6-8.6); Neutrophils % (auto) 81.7 % (37.0-80.0); Red Blood Cells 3.91 10^6/uL (4.5-5.90); Red Cell Distribution Width 16.3 % (11.8-14.3); White Blood Cell 14.5 10^3/uL (4.4-10.8)
[2022-02-28 06:42] LABS: Potassium 3.3 mmol/L (3.5-5.1)
[2022-02-28 06:48] LABS: BUN/Creatinine Ratio 14.3; Bilirubin, Total 0.3 mg/dL (0.2-1.0); Calcium 7.9 mg/dL (8.5-10.1); Total Protein 5.2 g/dL (6.4-8.2)
[2022-02-28 06:51] LABS: Albumin 1.5 g/dL (3.4-5.0); Magnesium 2.2 mg/dL (1.6-2.6); Phosphorus 2.6 mg/dL (2.5-4.90)
[2022-02-28 09:00] VITALS: BP 108/68
[2022-02-28] MEDS: FLORASTOR (S. BOULARDII) 250 MG CAP PO SCH ×3 (09:50→21:55)
[2022-02-28] MEDS: INSULIN LANTUS (GLARGINE) 1 /0.01ml (100units/ml) SC SCH (09:54)
[2022-02-28 13:00] VITALS: BP 112/71
[2022-02-28] MEDS ORDERED: POTASSIUM CHL 20 Meq TABLET PO ONE (13:15)
[2022-02-28 17:00] VITALS: BP 113/69
[2022-02-28 22:00] VITALS: BP 111/74
[2022-03-01 05:00] VITALS: BP 106/60
[2022-03-01] MEDS: metroNIDAZOLE 500MG/100ML 100 ML IV SCH ×3 (05:00→21:24)
[2022-03-01] MEDS: InsuLIN REG 1unit/0.01ml Soln (100units/ml) SC SCH ×4 (06:10→21:38)
[2022-03-01] MEDS: ACCU-CHEK COMFORT CURVE STRIP VI SCH ×4 (06:10→21:26)
[2022-03-01] MEDS: MORPHINE SULFATE INJECTION 2 MG/ML SYRG IV PRN (06:10)
[2022-03-01] MEDS: PIPERACILLIN-TAZOB 3.375GM 100 ML IV SCH ×4 (06:10→23:20)
[2022-03-01 07:03] LABS: Potassium 3.4 mmol/L (3.5-5.1)
[2022-03-01 07:04] LABS: Basophils # (auto) 0 10 ^3/uL (0-0.2); Basophils % (auto) 0.2 % (0.0-2.0); Eosinophils # (auto) 0 10 ^3/uL (0-0.8); Lymphocytes # (auto) 1.2 10 ^3/uL (0.4-5.4); White Blood Cell 14.5 10^3/uL (4.4-10.8)
[2022-03-01 07:06] LABS: BUN/Creatinine Ratio 14.3
[2022-03-01 07:07] LABS: Eosinophils % (auto) 0.1 % (0.0-7.0); Hematocrit 27.8 % (41.0-53.0); Hemoglobin 9.4 g/dL (13.5-17.5); Mean Corpuscular Hemoglobin 26.3 pg (28.0-32.0); Mean Corpuscular Hgb Conc. 33.9 g/dL (32.0-36.0); Mean Corpuscular Volume 77.6 fL (80.0-100.0); Monocytes # (auto) 1.4 10 ^3/uL (0-1.3); Monocytes % (auto) 9.3 % (0.0-12.0); Neutrophils % (auto) 82.4 % (37.0-80.0); Red Blood Cells 3.58 10^6/uL (4.5-5.90)
[2022-03-01 09:00] VITALS: BP 123/71
[2022-03-01] MEDS ORDERED: POTASSIUM CHL 20 Meq TABLET PO ONE (09:15)
[2022-03-01] MEDS: FLORASTOR (S. BOULARDII) 250 MG CAP PO SCH ×3 (10:00→21:25)
[2022-03-01] MEDS: FAMOTIDINE 20 MG TAB PO SCH (10:59)
[2022-03-01] MEDS: ENOXAPARIN SOD 40 MG/0.4 ML SYRINGE SC SCH (11:00)
[2022-03-01] MEDS: INSULIN LANTUS (GLARGINE) 1 /0.01ml (100units/ml) SC SCH (11:16)
[2022-03-01] MEDS ORDERED: VANCOMYCIN HCL 125MG/5ML ORAL SOL PO SCH (12:00)
[2022-03-01] MEDS ORDERED: GABAPENTIN 100 MG CAP PO ONE (12:30)
[2022-03-01] MEDS: VANCOMYCIN HCL 125MG/5ML ORAL SOL PO SCH ×2 (17:41→21:25)
[2022-03-01] MEDS: GABAPENTIN 100 MG CAP PO SCH (21:25)
[2022-03-01 22:00] VITALS: BP 129/71
[2022-03-01] MEDS ORDERED: FLORASTOR (S. BOULARDII) 250 MG CAP PO SCH (22:00)
[2022-03-02 05:26] VITALS: BP 117/71
[2022-03-02] MEDS: ACCU-CHEK COMFORT CURVE STRIP VI SCH ×4 (06:15→22:32)
[2022-03-02] MEDS: PIPERACILLIN-TAZOB 3.375GM 100 ML IV SCH ×2 (06:17→12:44)
[2022-03-02] MEDS: VANCOMYCIN HCL 125MG/5ML ORAL SOL PO SCH ×4 (06:18→22:32)
[2022-03-02] MEDS: metroNIDAZOLE 500MG/100ML 100 ML IV SCH ×3 (06:18→22:31)
[2022-03-02 06:29] LABS: Basophils # (auto) 0 10 ^3/uL (0-0.2); Basophils % (auto) 0.2 % (0.0-2.0); Eosinophils # (auto) 0.1 10 ^3/uL (0-0.8); Lymphocytes # (auto) 1.4 10 ^3/uL (0.4-5.4); Mean Corpuscular Hemoglobin 25.8 pg (28.0-32.0)
[2022-03-02 06:31] LABS: Eosinophils % (auto) 0.8 % (0.0-7.0); Hematocrit 29.2 % (41.0-53.0); Hemoglobin 9.6 g/dL (13.5-17.5); Mean Corpuscular Hgb Conc. 32.9 g/dL (32.0-36.0); Mean Corpuscular Volume 78.2 fL (80.0-100.0); Monocytes # (auto) 1.4 10 ^3/uL (0-1.3); Monocytes % (auto) 9.7 % (0.0-12.0); Neutrophils # (auto) 11.1 10 ^3/uL (1.6-8.6); Neutrophils % (auto) 79.3 % (37.0-80.0); Nucleated Red Blood Cells % 0.1 %; Red Blood Cells 3.74 10^6/uL (4.5-5.90)
[2022-03-02] MEDS: InsuLIN REG 1unit/0.01ml Soln (100units/ml) SC SCH ×4 (06:38→22:00)
[2022-03-02 06:42] LABS: BUN/Creatinine Ratio 9.8; Calcium 7.9 mg/dL (8.5-10.1); Potassium 3.2 mmol/L (3.5-5.1)
[2022-03-02 09:20] VITALS: BP 110/68
[2022-03-02] MEDS: ENOXAPARIN SOD 40 MG/0.4 ML SYRINGE SC SCH (09:20)
[2022-03-02] MEDS: FLORASTOR (S. BOULARDII) 250 MG CAP PO SCH ×2 (09:20→22:32)
[2022-03-02] MEDS: GABAPENTIN 100 MG CAP PO SCH ×2 (09:20→22:32)
[2022-03-02] MEDS: FAMOTIDINE 20 MG TAB PO SCH (09:21)
[2022-03-02] MEDS: INSULIN LANTUS (GLARGINE) 1 /0.01ml (100units/ml) SC SCH (09:24)
[2022-03-02 13:00] VITALS: BP 117/77
[2022-03-02] MEDS ORDERED: POTASSIUM CHL 20 Meq TABLET PO ONE (14:45)
[2022-03-02] MEDS ORDERED: CEFTRIAXONE SODIUM 2 GM in D5W 5% 50 ML IV SCH (15:00)
[2022-03-02 17:09] VITALS: BP 109/72
[2022-03-02 22:00] VITALS: BP 124/76
[2022-03-03 05:00] VITALS: BP 112/68
[2022-03-03] MEDS: VANCOMYCIN HCL 125MG/5ML ORAL SOL PO SCH ×4 (05:47→21:39)
[2022-03-03] MEDS: metroNIDAZOLE 500MG/100ML 100 ML IV SCH ×3 (05:47→21:37)
[2022-03-03] MEDS: ACCU-CHEK COMFORT CURVE STRIP VI SCH ×4 (06:17→21:38)
[2022-03-03] MEDS: InsuLIN REG 1unit/0.01ml Soln (100units/ml) SC SCH ×5 (06:21→21:57)
[2022-03-03] MEDS: FLORASTOR (S. BOULARDII) 250 MG CAP PO SCH ×2 (08:57→21:37)
[2022-03-03] MEDS: ENOXAPARIN SOD 40 MG/0.4 ML SYRINGE SC SCH (08:57)
[2022-03-03] MEDS: GABAPENTIN 100 MG CAP PO SCH ×2 (08:57→21:38)
[2022-03-03] MEDS: INSULIN LANTUS (GLARGINE) 1 /0.01ml (100units/ml) SC SCH (08:58)
[2022-03-03 09:00] VITALS: BP 115/77
[2022-03-03] MEDS: CEFTRIAXONE SODIUM 2 GM in D5W 5% 50 ML IV SCH (09:29)
[2022-03-03 10:42] LABS: Magnesium 1.7 mg/dL (1.6-2.6); Potassium 3.6 mmol/L (3.5-5.1)
[2022-03-03] MEDS ORDERED: POTASSIUM CHL 20 Meq TABLET PO ONE (11:30)
[2022-03-03] MEDS ORDERED: MAGNESIUM OXIDE 400 MG TAB PO ONE (11:30)
[2022-03-03 17:00] VITALS: BP 123/77
[2022-03-03] MEDS: MORPHINE SULFATE INJECTION 2 MG/ML SYRG IV PRN (21:39)
[2022-03-03 22:00] VITALS: BP 120/65
[2022-03-03] MEDS ORDERED: TEMAZEPAM 15 MG CAP PO ONE (23:15)
[2022-03-04] MEDS: MORPHINE SULFATE INJECTION 2 MG/ML SYRG IV PRN ×3 (04:56→20:58)
[2022-03-04] MEDS: metroNIDAZOLE 500MG/100ML 100 ML IV SCH ×3 (04:57→22:02)
[2022-03-04] MEDS: VANCOMYCIN HCL 125MG/5ML ORAL SOL PO SCH ×2 (04:57→12:41)
[2022-03-04 05:00] VITALS: BP 105/56
[2022-03-04 06:27] LABS: Basophils # (auto) 0 10 ^3/uL (0-0.2); Basophils % (auto) 0.2 % (0.0-2.0); Mean Corpuscular Volume 84.6 fL (80.0-100.0); Monocytes # (auto) 1.6 10 ^3/uL (0-1.3); Red Cell Distribution Width 16.9 % (11.8-14.3)
[2022-03-04 06:29] LABS: Eosinophils # (auto) 0 10 ^3/uL (0-0.8); Eosinophils % (auto) 0.3 % (0.0-7.0); Hematocrit 33.3 % (41.0-53.0); Hemoglobin 10.3 g/dL (13.5-17.5); Lymphocytes # (auto) 1.6 10 ^3/uL (0.4-5.4); Lymphocytes % (auto) 10.5 % (10.0-50.0); Mean Corpuscular Hemoglobin 26.1 pg (28.0-32.0); Mean Corpuscular Hgb Conc. 30.9 g/dL (32.0-36.0); Monocytes % (auto) 10.7 % (0.0-12.0); Neutrophils % (auto) 78.3 % (37.0-80.0); Nucleated Red Blood Cells % 0.3 %; Red Blood Cells 3.94 10^6/uL (4.5-5.90); White Blood Cell 15.4 10^3/uL (4.4-10.8)
[2022-03-04] MEDS: ACCU-CHEK COMFORT CURVE STRIP VI SCH ×4 (06:34→21:18)
[2022-03-04] MEDS: InsuLIN REG 1unit/0.01ml Soln (100units/ml) SC SCH ×4 (06:35→21:18)
[2022-03-04] MEDS ORDERED: LORazepam 2MG/ML-1ML VIAL IV PRN (10:15)
[2022-03-04] MEDS: ENOXAPARIN SOD 40 MG/0.4 ML SYRINGE SC SCH (10:43)
[2022-03-04] MEDS: GABAPENTIN 100 MG CAP PO SCH ×2 (10:43→22:03)
[2022-03-04] MEDS: FLORASTOR (S. BOULARDII) 250 MG CAP PO SCH ×2 (10:43→22:03)
[2022-03-04] MEDS: CEFTRIAXONE SODIUM 2 GM in D5W 5% 50 ML IV SCH (10:43)
[2022-03-04] MEDS: INSULIN LANTUS (GLARGINE) 1 /0.01ml (100units/ml) SC SCH (10:44)
[2022-03-04 11:08] LABS: INR 1.27 (0.9-1.15); Partial Thromboplastin Time 29.1 sec (23.6-33.0)
[2022-03-04 12:50] LABS: Calcium 8.1 mg/dL (8.5-10.1)
[2022-03-04 13:00] VITALS: BP 116/74
[2022-03-04 17:00] VITALS: BP 121/75
[2022-03-04] MEDS: VANCOMYCIN HCL 500MG/5ML ORAL SOL PO SCH ×2 (18:02→22:03)
[2022-03-04 22:28] VITALS: BP 119/78
[2022-03-05 04:56] VITALS: BP 116/70
[2022-03-05] MEDS: metroNIDAZOLE 500MG/100ML 100 ML IV SCH ×3 (05:15→22:43)
[2022-03-05] MEDS: VANCOMYCIN HCL 500MG/5ML ORAL SOL PO SCH ×4 (05:15→22:43)
[2022-03-05] MEDS: InsuLIN REG 1unit/0.01ml Soln (100units/ml) SC SCH ×4 (06:12→22:00)
[2022-03-05] MEDS: ACCU-CHEK COMFORT CURVE STRIP VI SCH ×4 (06:12→22:45)
[2022-03-05 09:00] VITALS: BP 116/71
[2022-03-05] MEDS: FLORASTOR (S. BOULARDII) 250 MG CAP PO SCH ×2 (09:36→22:44)
[2022-03-05] MEDS: GABAPENTIN 100 MG CAP PO SCH ×2 (09:36→22:44)
[2022-03-05] MEDS: INSULIN LANTUS (GLARGINE) 1 /0.01ml (100units/ml) SC SCH (09:49)
[2022-03-05] MEDS: ENOXAPARIN SOD 40 MG/0.4 ML SYRINGE SC SCH (09:50)
[2022-03-05] MEDS: CEFTRIAXONE SODIUM 2 GM in D5W 5% 50 ML IV SCH (10:00)
[2022-03-05 14:07] VITALS: BP 122/76
[2022-03-05 22:00] VITALS: BP 122/73
[2022-03-06 05:00] VITALS: BP 102/65
[2022-03-06] MEDS: ACCU-CHEK COMFORT CURVE STRIP VI SCH ×2 (06:55→11:30)
[2022-03-06] MEDS: metroNIDAZOLE 500MG/100ML 100 ML IV SCH (06:55)
[2022-03-06] MEDS: VANCOMYCIN HCL 500MG/5ML ORAL SOL PO SCH (06:55)
[2022-03-06] MEDS: InsuLIN REG 1unit/0.01ml Soln (100units/ml) SC SCH ×2 (06:56→13:17)
[2022-03-06 08:18] LABS: BUN/Creatinine Ratio 6.3; Potassium 4.5 mmol/L (3.5-5.1)
[2022-03-06 08:36] VITALS: BP 113/73
[2022-03-06] MEDS: CEFTRIAXONE SODIUM 2 GM in D5W 5% 50 ML IV SCH (11:28)
[2022-03-06] MEDS: INSULIN LANTUS (GLARGINE) 1 /0.01ml (100units/ml) SC SCH (11:35)
[2022-03-06] MEDS: ENOXAPARIN SOD 40 MG/0.4 ML SYRINGE SC SCH (11:36)
[2022-03-06] MEDS: GABAPENTIN 100 MG CAP PO SCH (11:37)
[2022-03-06] MEDS: FLORASTOR (S. BOULARDII) 250 MG CAP PO SCH (11:37)
[2022-03-06] MEDS ORDERED: CEPH-509 PO (12:20)
[2022-03-06] MEDS ORDERED: METR500T PO (12:20)
[2022-03-06] MEDS ORDERED: VANC500PO PO (12:20)
[2022-03-06] MEDS ORDERED: INSU-567 XX (12:20)
[2022-03-06 13:41] VITALS: BP 113/73
== END 2022-03-06 15:49 | disposition home or self-care (01) | DRG 871 ==
LOC: ER 07:16 → TELE 14:18 → ICU WEST 02-27 01:25 → TELE-WESTW 02-27 17:31 → WEST WING 03-02 19:24
PROVIDERS: ADMIT Internal Medicine; ATTEND Internal Medicine Pulmonary Disease
PROC: 0DBN8ZX Excision of Sigmoid Colon, Via Natural or Artificial Opening Endoscopic, Diagnostic (ICD-10-PCS; principal; 2022-02-27 10:45)
DX: A41.9 Sepsis, unspecified organism (principal); E11.10 Type 2 diabetes mellitus with ketoacidosis without coma; R65.21 Severe sepsis with septic shock; C19 Malignant neoplasm of rectosigmoid junction; A04.72 Enterocolitis due to Clostridium difficile, not specified as recurrent; R19.00 Intra-abdominal and pelvic swelling, mass and lump, unspecified site; I10 Essential (primary) hypertension; E86.0 Dehydration; E87.6 Hypokalemia; E83.42 Hypomagnesemia; K58.9 Irritable bowel syndrome, unspecified; Z79.4 Long term (current) use of insulin; Z85.048 Personal history of other malignant neoplasm of rectum, rectosigmoid junction, and anus; Z20.822 Contact with and (suspected) exposure to COVID-19
CPT/HCPCS: 36415; 36600; 71045; 74176; 74177; 80048; 80053; 81001; 82010; 82043; 82378; 82805; 82962; 83036; 83735; 83880; 84100; 84132; 84484; 85025; 85610; 85730; 86850; 86900; 86901; 87040; 87045; 87077; 87081; 87186; 87427; 87493; 93005; 93306; 96361; 96365; 96372; G0378; J0696; J1815; J2250; J2543; J3480; J3490; J7060